=== PATIENT | male | born 1985 | race African-American/Black ===

== ENCOUNTER 2021-05-10 16:37 | Emergency (ER) | payer MEDICAID, SELFPAY ==
--- NOTE | ~2021-05-10 | XR_ITS ---
EXAMINATION: XR FOOT, RIGHT CLINICAL INFORMATION: Foreign body at ball of foot COMPARISON: None TECHNIQUE: AP, lateral, and oblique views of the right foot. FINDINGS: The bones and soft tissues are normal aside from some mild soft tissue swelling on the plantar surface. No fracture. Alignment is anatomic. Joint spaces are maintained. No radiopaque foreign body seen. XR/XR foot RT min 3V IMPRESSION: No acute abnormality seen. No radiopaque foreign body identified.
[2021-05-10 16:45] VITALS: BP 148/73; PULSE 87; RESP 16; TEMP 36.8; O2SAT 98; BMI 26.9
--- NOTE | 2021-05-10 17:21 | ED.EXTPRO ---
HPI - Extremity Problem General Chief complaint: Extremity Problem Stated complaint: hurt his foot Time Seen by Provider: 05/10/21 16:50 Source: patient Mode of arrival: ambulatory Limitations: no limitations History of Present Illness HPI Narrative: 35 y/o male presenting with right foot pain for the last 2-3 weeks after he had a wooden sliver in his foot. He reports removing the wood immediately and he thought he got it out completely intact. He does not know if it was pressure treated or not. He is not up to date on his tetanus shot. He reports ongoing pain in his right foot and he is concerned there may be additional sliver or wood piece still in his foot. He denies redness or drainage of pus, no muscle cramping or pain. He states there is hard skin over the area where the wood was and it is very tender to touch and hurts to walk on. MD Complaint: extremity pain Onset (ago): week(s) (2) Pain Consistency: constant Location: right and lower extremity Severity scale (1-10): 7 Quality: aching Radiation: none Relieving factors: rest Exacerbating factors: weight bearing and palpation Associated symptoms: denies other symptoms Related Data Previous Rx's Medication Instructions Recorded cephalexin 500 mg PO Q6H 5 Days #20 cap 05/10/21 ibuprofen 600 mg PO Q8H PRN #10 tab 05/10/21 Allergies Allergy/AdvReac Type Severity Reaction Status Date / Time Unable to Assess Allergy Unverified 05/10/21 16:57 Review of Systems Review of Systems: Constitutional: No Fever, No Chills Cardiovascular: No Chest Pain, No SOB Respiratory: No Cough, No Sputum Gastrointestinal: No Nausea, No Vomiting Musculoskeletal: No joint pain, No Myalgias Skin: + Skin Lesions, No rash Neuro: No Weakness, No Numbness Heme/Lymph: No Bruising, No Lymphadenopathy PMFSH Past Medical History Attestation statement: The following information was validated with the patient. Medical History ADHD High cholesterol Social History Social History Advance Directives: No Advance Directives Information Provided: No Physical Exam Vital Signs: Vital Signs: Last Vital Signs Temp 98.2 F 05/10/21 16:45 Pulse 87 05/10/21 16:45 Resp 16 05/10/21 16:45 BP 148/73 H 05/10/21 16:45 Pulse Ox 98 05/10/21 16:45 Body Mass Index 26.9 Appearance: Alert. Oriented X3. No acute distress. HEENT: normal inspection CVS: Normal heart rate and rhythm. Pulses normal. Respiratory: No respiratory distress. Skin: Skin warm and dry. Normal skin color. Normal skin turgor. No rashes. Extremities: plantar aspect of right foot with calloused area located on distal/lateral aspect without swelling, erythema or drainge. +tenderness. no palpable FB. NV intact distally. Neuro: Oriented X 3. No motor deficit. No sensory deficit. Ambulates with a limp. Course Course Course Narrative: 35 yo male presenting with plantar foot pain s/p puncture wound almost 3 weeks ago. XR pending to assess for residual FB. Reevaluation(s) Reevaluation #1: XR shows No acute abnormality seen. No radiopaque foreign body identified. Will treat for possible infection although no significant erythema or warmth. Will also refer to Podiatry for further management. Patient agress with plan and is stable for discharge home. Discharge Plan Discharge Clinical Impression: Foot pain Qualifiers: Laterality: right Qualified Code(s): M79.671 - Pain in right foot Patient Disposition: Home, Self-Care Instructions: Puncture Wound in the Foot (ED) Additional Instructions: Your x-ray today did not show any residual material in the foot. Start taking the prescribed antibiotic as directed. Recommend trial of over the counter Compound W for plantar wart. Recommend following up with Podiatry for further management. Prescriptions: New cephalexin 500 mg capsule 500 mg PO Q6H 5 Days Qty: 20 RF: 0 ibuprofen 600 mg tablet 600 mg PO Q8H PRN (Reason: pain) Qty: 10 RF: 0 Referrals: Mert Siddiqui MD [Physician] - 3 days Stand Alone Forms: Work/School Release
[2021-05-10] MEDS: Diphth,Pertus(ACell),Tet Adult 0.5 ML SYRINGE IM (17:36)
== END 2021-05-10 18:18 | disposition home or self-care (01) ==
PROVIDERS: Emergency Provider Emergency Medicine
DX: S91.331A Puncture wound without foreign body, right foot, initial encounter (principal); S90.821A Blister (nonthermal), right foot, initial encounter; M79.671 Pain in right foot; Y28.9XXA Contact with unspecified sharp object, undetermined intent, initial encounter; Y93.9 Activity, unspecified; Y92.9 Unspecified place or not applicable; Y99.9 Unspecified external cause status; Z79.899 Other long term (current) drug therapy
CPT/HCPCS: 73630; 90471; 90715; 99283; 99284

== ENCOUNTER 2021-11-09 20:09 | Emergency (ER) | payer MEDICAID, SELFPAY ==
[2021-11-09 20:19] VITALS: BP 140/74; PULSE 89; RESP 18; TEMP 36.8; O2SAT 95; BMI 30.8
[2021-11-09 20:58] LABS: Amphetamine Screen Urine Not Detected (Not Detect); Barbiturates, Urine Not Detected (Not Detect); Benzodiazepines Screen Urine Not Detected (Not Detect); Cannabinoid Screen Urine POSITIVE (Not Detect); Cocaine Screen Urine Not Detected (Not Detect); Fentanyl, urine Not Detected (Not Detect); Opiate Screen Urine Not Detected (Not Detect); Phencyclidine Screen Urine Not Detected (Not Detect)
[2021-11-09 21:00] LABS: COVID-19 Test Negative (Negative)
--- NOTE | 2021-11-09 21:05 | ED_ITS ---
HPI - Psych General Chief Complaint: Psychiatric Symptoms <Daniel Mason MD - Last Filed: 11/09/21 22:02> Stated Complaint: SI <Daniel Mason MD - Last Filed: 11/09/21 22:02> Time Seen by Provider: 11/09/21 21:05 <Daniel Mason MD - Last Filed: 11/09/21 22:02> Source: patient and EMS <Daniel Mason MD - Last Filed: 11/09/21 22:02> Mode of arrival: EMS <Daniel Mason MD - Last Filed: 11/09/21 22:02> Limitations: no limitations <Daniel Mason MD - Last Filed: 11/09/21 22:02> History of Present Illness HPI Narrative: 35-year-old male came in for evaluation of depression and suicidal attempt. Patient brought in by ambulance for severe depression, patient attempted to commit suicide by hanging himself in the role but he could not do it, family called the police, the patient ran away in the wood the patient got caught by the police dog . Patient been depressed for the past 6 years, going through divorce with his , also cannot see his children or talk to them, patient also mention financial problem and job problem felt very depressed today and planned to hang himself using a rope and belt, but could hang himself and called the police that the patient ran. <Daniel Mason MD - Last Filed: 11/09/21 22:02> Related Data Home Medications: Previous Rx's Medication Instructions Recorded cephalexin 500 mg capsule 500 mg PO Q6H 5 Days #20 cap 05/10/21 ibuprofen 600 mg tablet 600 mg PO Q8H PRN #10 tab 05/10/21 <Daniel Mason MD - Last Filed: 11/09/21 22:02> Allergies/Adverse Reactions: Allergies Allergy/AdvReac Type Severity Reaction Status Date / Time Unable to Assess Allergy Unverified 05/10/21 16:57 <Daniel Mason MD - Last Filed: 11/09/21 22:02> Review of Systems Review of Systems: all other systems are reviewed and are negative Constitutional: Reports as per HPI and Reports no additional constitutional complaints Eyes: Reports as per HPI and Reports no additional eye complaints Reports system reviewed and no additional complaints, except as documented Cardiovascular: Reports as per HPI and Reports no additional cardiovascular complaints Respiratory: Reports as per HPI and Reports no additional respiratory complaints Gastrointestinal: Reports as per HPI and Reports no additional gastrointestinal complaints Genitourinary: Reports no additional female genitourinary complaints Musculoskeletal: Reports no additional musculoskeletal complaints Skin/Breast: Reports system reviewed and no additional complaints, except as docu Psychiatric: Reports no additional psychiatric complaints Endocrine: Reports no additional endocrine complaints Hematologic/Lymphatic: Reports no additional hematologic/lymphatic complaints Allergic/Immunologic: Reports no additional allergic/immunologic complaints Reports system reviewed and no additional complaints, except as documented and Reports Abnormal speech present <Daniel Mason MD - Last Filed: 11/09/21 22:02> [facility] Past Medical History Medical History: Medical History ADHD High cholesterol <Daniel Mason MD - Last Filed: 11/09/21 22:02> Social History Social History: Social History Advance Directives: No <Daniel Mason MD - Last Filed: 11/09/21 22:02> Physical Exam Vital Signs: Vital Signs: Last Vital Signs Temp 98.3 F 11/10/21 00:26 Pulse 72 11/10/21 00:26 Resp 18 11/10/21 00:26 BP 128/59 L 11/10/21 00:26 Pulse Ox 99 11/10/21 00:26 BMI result Body Mass Index 30.8 vital signs have been reviewed as appeared to be correct. Blood pressure normal. Heart rate normal. Respiration rate normal. Temperature normal. Oxygen saturation normal. <Daniel Mason MD - Last Filed: 11/09/21 22:02> Vital Signs: Last Vital Signs Temp 98.3 F 11/10/21 00:26 Pulse 72 11/10/21 00:26 Resp 18 11/10/21 00:26 BP 128/59 L 11/10/21 00:26 Pulse Ox 99 11/10/21 00:26 BMI result Body Mass Index 30.8 <TOMER Alvarado - Last Filed: 11/10/21 10:52> Appearance: Alert. Oriented X3. No acute distress. Head: Normal external exam. Normocephalic. Atraumatic. No Jeter signs noted. No raccoon eyes noted Eyes: PERRLA. EOMI. Conjunctiva and sclera normal. Eyelids normal. ENT: TM's Normal. Pharynx normal. Uvula midline. Moist mucous membranes. No trismus noted. No drooling noted. No muffled voice noted. Neck: Normal inspection. Neck supple. FROM. No adenopathy. Thyroid Normal. No meningeal signs. No neck mass noted. CVS: Normal heart rate and rhythm. Heart sound normal. No murmurs noted. Pulses normal throughout. Respiratory: No respiratory distress. Painless inspiration. Breath sounds normal. No wheezes/rales/rhonchi noted. Chest nontender. No accessory muscle usage noted or decreased air movement noted. Abdomen: Soft and nontender. Bowel sounds normal in all 4 quadrants. No distention noted. No organomegaly noted. No visible injury noted. Back: No CVA tenderness. Full range of motion noted. Skin: Skin warm and dry. Normal skin color. Normal skin turgor. No rashes/lesions/lacerations noted. Extremities: No lower extremity edema. Extremities exhibit normal range of motion. Extremities nontender. Neuro: Oriented X 3. Cranial nerve exam: II-XII are grossly intact No motor deficit. No sensory deficit. normal reflexes. Patient Appearance: Appropriate Patient Orientation: Person, Place, Time and Situation Level of Consciousness: Awake, Appropriate and Alert Patient Behavior: Talkative, Cooperative. Mood Description: Depressed with suicidal ideation. Affect Description: Flat. Patient Cognition Impaired: No Ability to Follow Directions: Good Speech Pattern: Spontaneous Speech Memory Description: Intact Hallucinations: Not present. Delusions: Not Present Thought Process: Logical. Thought Content: Unremarkable Depressive Symptoms: Increased anxiety. Judgement: Poor <Daniel Mason MD - Last Filed: 11/09/21 22:02> Course Course Course Narrative: Assessment and plan. 35-year-old male came in after attempt to hang himself, patient was brought in by the police. Patient is depressed due to multiple reasons including going through divorce, cannot see his family, financial problem, or job problem. Patient is medically cleared await for [facility] and to evaluate him. <Daniel Mason MD - Last Filed: 11/09/21 22:02> Reevaluation(s) Reevaluation #1: Physician observation started at 22:00 . Patient placed in physician observation because the patient needed more time for BHN evaluation and the need for placement patient's vital sign were stable, patient is alert and oriented , neuro exam unchanged, unremarkable rest of physical exam. <Daniel Mason MD - Last Filed: 11/09/21 22:02> Time: 22:01 <Daniel Mason MD - Last Filed: 11/09/21 22:02> Reevaluation #2: Patient is a Section 12, awaiting be H and to evaluate. Patient presented for suicide attempt by hanging. Physician observation continues, no apparent distress. Lungs clear to auscultation bilaterally, heart regular rate rhythm, abdomen soft nontender. Vital signs are stable. Patient would like to go home today and would like to go back to work today. Patient is frustrated he has not seen Behavioral Health yet <TOMER Alvarado - Last Filed: 11/10/21 10:52> Time: 10:50 <TOMER Alvarado - Last Filed: 11/10/21 10:52> MDM - Psych Medical Records Attestation: I reviewed the patient's medical records. <Daniel Mason MD - Last Filed: 11/09/21 22:02> Lab Data Attestation: I reviewed the patient's lab results. <Daniel Mason MD - Last Filed: 11/09/21 22:02> Result diagrams: : 11/09/21 21:12 11/09/21 21:12 <Daniel Mason MD - Last Filed: 11/09/21 22:02> Labs: Lab Results 11/09/21 11/09/21 11/09/21 Range/Units 20:38 20:39 21:12 WBC 6.2 (4.8-10.8) X10*3/uL RBC 4.67 (4.60-5.80) X10*6/uL Hgb 14.0 (14.0-18.0) g/dl Hct 40.7 L (42.0-52.0) % MCV 87.2 (80.0-98.0) fL MCH 30.0 (27.0-33.0) pg MCHC 34.4 (31.0-36.0) g/dl RDW 12.8 (11.0-16.0) % Plt Count 289 (160-400) X10*3/uL MPV 9.1 L (9.4-12.4) fL Immature Gran % (Auto) 0.2 (0.0-0.4) % Neut % (Auto) 52.2 (45-73) % Lymph % (Auto) 37.2 (20-40) % [place] % (Auto) 6.1 (2-11) % Eos % (Auto) 4.0 (0-4) % Baso % (Auto) 0.3 (0-2) % Lymph # (Auto) 2.3 (1.2-4.9) X10*3/uL [place] # (Auto) 0.4 (0.1-1.2) X10*3/uL Eos # (Auto) 0.3 (0.0-0.4) X10*3/uL Baso # (Auto) 0.0 (0.0-0.2) X10*3/uL Abs Immat Gran (auto) 0.01 (0.00-0.03) X10*3/uL Absolute Neuts (auto) 3.2 (2.0-8.3) x10*3/uL Absolute Nucleated RBC 0.000 (0.0-0.012) X10*3/uL Nucleated RBC % (auto) 0.0 (0.0-0.2) /100WBC Sodium (135-145) mmol/L Potassium (3.3-5.1) mmol/L Chloride (96-108) mmol/L Carbon Dioxide (22-29) mmol/L Anion Gap (12-20) BUN (9-16) mg/dL Creatinine (0.5-1.4) mg/dL Estim Creat Clear Calc Estimated GFR Random Glucose (60-115) mg/dL Calcium (8.4-10.2) mg/dL Urine Opiates Screen Not Detected (Not Detect) Urine Fentanyl Screen Not Detected (Not Detect) Ur Barbiturates Screen Not Detected (Not Detect) Ur Phencyclidine Scrn Not Detected (Not Detect) Ur Amphetamines Screen Not Detected (Not Detect) U Benzodiazepines Scrn Not Detected (Not Detect) Urine Cocaine Screen Not Detected (Not Detect) U Marijuana (THC) Screen POSITIVE H (Not Detect) Ethyl Alcohol mg/dL COVID-19 (JULIANNA) Negative (Negative) COVID-19 Clin Com See Note 11/09/21 11/09/21 Range/Units 21:12 21:12 WBC (4.8-10.8) X10*3/uL RBC (4.60-5.80) X10*6/uL Hgb (14.0-18.0) g/dl Hct (42.0-52.0) % MCV (80.0-98.0) fL MCH (27.0-33.0) pg MCHC (31.0-36.0) g/dl RDW (11.0-16.0) % Plt Count (160-400) X10*3/uL MPV (9.4-12.4) fL Immature Gran % (Auto) (0.0-0.4) % Neut % (Auto) (45-73) % Lymph % (Auto) (20-40) % [place] % (Auto) (2-11) % Eos % (Auto) (0-4) % Baso % (Auto) (0-2) % Lymph # (Auto) (1.2-4.9) X10*3/uL [place] # (Auto) (0.1-1.2) X10*3/uL Eos # (Auto) (0.0-0.4) X10*3/uL Baso # (Auto) (0.0-0.2) X10*3/uL Abs Immat Gran (auto) (0.00-0.03) X10*3/uL Absolute Neuts (auto) (2.0-8.3) x10*3/uL Absolute Nucleated RBC (0.0-0.012) X10*3/uL Nucleated RBC % (auto) (0.0-0.2) /100WBC Sodium 139 (135-145) mmol/L Potassium 3.9 (3.3-5.1) mmol/L Chloride 104 (96-108) mmol/L Carbon Dioxide 32 H (22-29) mmol/L Anion Gap 7 L (12-20) BUN 12 (9-16) mg/dL Creatinine 1.16 (0.5-1.4) mg/dL Estim Creat Clear Calc 116.7 Estimated GFR > 60 Random Glucose 131 H (60-115) mg/dL Calcium 9.1 (8.4-10.2) mg/dL Urine Opiates Screen (Not Detect) Urine Fentanyl Screen (Not Detect) Ur Barbiturates Screen (Not Detect) Ur Phencyclidine Scrn (Not Detect) Ur Amphetamines Screen (Not Detect) U Benzodiazepines Scrn (Not Detect) Urine Cocaine Screen (Not Detect) U Marijuana (THC) Screen (Not Detect) Ethyl Alcohol < 10 mg/dL COVID-19 (JULIANNA) (Negative) COVID-19 Clin Com <Daniel Mason MD - Last Filed: 11/09/21 22:02> Lab Results 11/09/21 11/09/21 11/09/21 Range/Units 20:38 20:39 21:12 WBC 6.2 (4.8-10.8) X10*3/uL RBC 4.67 (4.60-5.80) X10*6/uL Hgb 14.0 (14.0-18.0) g/dl Hct 40.7 L (42.0-52.0) % MCV 87.2 (80.0-98.0) fL MCH 30.0 (27.0-33.0) pg MCHC 34.4 (31.0-36.0) g/dl RDW 12.8 (11.0-16.0) % Plt Count 289 (160-400) X10*3/uL MPV 9.1 L (9.4-12.4) fL Immature Gran % (Auto) 0.2 (0.0-0.4) % Neut % (Auto) 52.2 (45-73) % Lymph % (Auto) 37.2 (20-40) % [place] % (Auto) 6.1 (2-11) % Eos % (Auto) 4.0 (0-4) % Baso % (Auto) 0.3 (0-2) % Lymph # (Auto) 2.3 (1.2-4.9) X10*3/uL [place] # (Auto) 0.4 (0.1-1.2) X10*3/uL Eos # (Auto) 0.3 (0.0-0.4) X10*3/uL Baso # (Auto) 0.0 (0.0-0.2) X10*3/uL Abs Immat Gran (auto) 0.01 (0.00-0.03) X10*3/uL Absolute Neuts (auto) 3.2 (2.0-8.3) x10*3/uL Absolute Nucleated RBC 0.000 (0.0-0.012) X10*3/uL Nucleated RBC % (auto) 0.0 (0.0-0.2) /100WBC Sodium (135-145) mmol/L Potassium (3.3-5.1) mmol/L Chloride (96-108) mmol/L Carbon Dioxide (22-29) mmol/L Anion Gap (12-20) BUN (9-16) mg/dL Creatinine (0.5-1.4) mg/dL Estim Creat Clear Calc Estimated GFR Random Glucose (60-115) mg/dL Calcium (8.4-10.2) mg/dL Urine Opiates Screen Not Detected (Not Detect) Urine Fentanyl Screen Not Detected (Not Detect) Ur Barbiturates Screen Not Detected (Not Detect) Ur Phencyclidine Scrn Not Detected (Not Detect) Ur Amphetamines Screen Not Detected (Not Detect) U Benzodiazepines Scrn Not Detected (Not Detect) Urine Cocaine Screen Not Detected (Not Detect) U Marijuana (THC) Screen POSITIVE H (Not Detect) Ethyl Alcohol mg/dL COVID-19 (JULIANNA) Negative (Negative) COVID-19 Clin Com See Note 11/09/21 11/09/21 Range/Units 21:12 21:12 WBC (4.8-10.8) X10*3/uL RBC (4.60-5.80) X10*6/uL Hgb (14.0-18.0) g/dl Hct (42.0-52.0) % MCV (80.0-98.0) fL MCH (27.0-33.0) pg MCHC (31.0-36.0) g/dl RDW (11.0-16.0) % Plt Count (160-400) X10*3/uL MPV (9.4-12.4) fL Immature Gran % (Auto) (0.0-0.4) % Neut % (Auto) (45-73) % Lymph % (Auto) (20-40) % [place] % (Auto) (2-11) % Eos % (Auto) (0-4) % Baso % (Auto) (0-2) % Lymph # (Auto) (1.2-4.9) X10*3/uL [place] # (Auto) (0.1-1.2) X10*3/uL Eos # (Auto) (0.0-0.4) X10*3/uL Baso # (Auto) (0.0-0.2) X10*3/uL Abs Immat Gran (auto) (0.00-0.03) X10*3/uL Absolute Neuts (auto) (2.0-8.3) x10*3/uL Absolute Nucleated RBC (0.0-0.012) X10*3/uL Nucleated RBC % (auto) (0.0-0.2) /100WBC Sodium 139 (135-145) mmol/L Potassium 3.9 (3.3-5.1) mmol/L Chloride 104 (96-108) mmol/L Carbon Dioxide 32 H (22-29) mmol/L Anion Gap 7 L (12-20) BUN 12 (9-16) mg/dL Creatinine 1.16 (0.5-1.4) mg/dL Estim Creat Clear Calc 116.7 Estimated GFR > 60 Random Glucose 131 H (60-115) mg/dL Calcium 9.1 (8.4-10.2) mg/dL Urine Opiates Screen (Not Detect) Urine Fentanyl Screen (Not Detect) Ur Barbiturates Screen (Not Detect) Ur Phencyclidine Scrn (Not Detect) Ur Amphetamines Screen (Not Detect) U Benzodiazepines Scrn (Not Detect) Urine Cocaine Screen (Not Detect) U Marijuana (THC) Screen (Not Detect) Ethyl Alcohol < 10 mg/dL COVID-19 (JULIANNA) (Negative) COVID-19 Clin Com <TOMER Alvarado - Last Filed: 11/10/21 10:52> Discharge Plan Discharge Clinical Impression: Depression, Suicidal ideation <Daniel Mason MD - Last Filed: 11/09/21 22:02> Prescriptions: No Action cephalexin 500 mg capsule 500 mg PO Q6H 5 Days Qty: 20 RF: 0 ibuprofen 600 mg tablet 600 mg PO Q8H PRN (Reason: pain) Qty: 10 RF: 0 <Daniel Mason MD - Last Filed: 11/09/21 22:02>
[2021-11-09 21:17] LABS: MANUAL DIFF FLAG NO
[2021-11-09 21:23] LABS: Basophils Percent Auto 0.3 % (0-2); Eosinophils Absolute Auto 0.3 X10*3/uL (0.0-0.4); Hematocrit 40.7 % (42.0-52.0); Imm Gran Abs Auto 0.01 X10*3/uL (0.00-0.03); Imm Gran Pct Auto 0.2 % (0.0-0.4); Lymphocytes Absolute Auto 2.3 X10*3/uL (1.2-4.9); Lymphocytes Percent Auto 37.2 % (20-40); Mean Corpuscular HGB Conc 34.4 g/dl (31.0-36.0); Mean Corpuscular Volume 87.2 fL (80.0-98.0); Mean Platelet Volume 9.1 fL (9.4-12.4); Monocytes Absolute Auto 0.4 X10*3/uL (0.1-1.2); Monocytes Percent Auto 6.1 % (2-11); Neutrophils Absolute Auto 3.2 x10*3/uL (2.0-8.3); Neutrophils Percent Auto 52.2 % (45-73); Platelet Count 289 X10*3/uL (160-400); Red Blood Count 4.67 X10*6/uL (4.60-5.80); Red Cell Distribution Width 12.8 % (11.0-16.0); White Blood Count 6.2 X10*3/uL (4.8-10.8)
[2021-11-09 21:36] LABS: Ethanol < 10 mg/dL
[2021-11-09 21:38] LABS: Anion Gap 7 (12-20); Blood Urea Nitrogen 12 mg/dL (9-16); Calcium 9.1 mg/dL (8.4-10.2); Carbon Dioxide 32 mmol/L (22-29); Chloride 104 mmol/L (96-108); Creatinine Clr Calc Pharmacy 116.7; Estimated Glomerular Filt Rate > 60; Glucose Random 131 mg/dL (60-115); Potassium 3.9 mmol/L (3.3-5.1); Sodium 139 mmol/L (135-145)
[2021-11-10 00:26] VITALS: BP 128/59; PULSE 72; RESP 18; TEMP 36.8; O2SAT 99
--- NOTE | 2021-11-10 06:13 | PC.NURSE ---
Patient slept through the night, no distress observed/reported, patient behavior is appropriate and cooperative, mood depressed, coherent, currently not on any medication, called but patient doesn't want to talk, BHN referral completed/confirmed, pending evaluation in the morning, VSS, will continue to monitor.
--- NOTE | 2021-11-10 07:21 | PC.NURSE ---
patient appears to remain asleep at present, respirations are even and unlabored, patient appears in no distress
--- NOTE | 2021-11-10 09:27 | PC.NURSE ---
with patient consent t/w called who said we're on a split, it was scary, he wrote a note and informed clients w that he was up and would remain here presently awaiting disposition and plan
--- NOTE | 2021-11-10 12:00 | PC.NURSE ---
since patient appeared upset t/w pursued an order for med to help him feel calmer, approached patient, patient declined
--- NOTE | 2021-11-10 12:48 | PC.NURSE ---
patient observed on phone w mom she's ruined my life () seems to minimize own involvement in prev noc's activities. talked to mom about trying to get car back from . walked by t/w never getting again while on phone some profane language used.
[2021-11-10] MEDS: Nicotine 7 MG PATCH.TD24 TRANSDERMA (17:26)
[2021-11-10 20:15] VITALS: BP 144/73; PULSE 86; TEMP 36.8; O2SAT 97
[2021-11-11 05:04] VITALS: BP 161/69; PULSE 82; RESP 18; TEMP 37.1; O2SAT 100
--- NOTE | 2021-11-11 06:22 | PC.NURSE ---
Patient slept through the night, no distress observed/reported, patient behavior is appropriate and cooperative, mood depressed, coherent, currently not on any medication, BHN assessment completed, disposition section 12 inpatient bed search, VSS, will continue to monitor.
--- NOTE | 2021-11-11 07:20 | PC.NURSE ---
patient appears to remain asleep at present, respirations are even and unlabored, patient appears in no distress
[2021-11-11] MEDS: Nicotine 7 MG PATCH.TD24 TRANSDERMA (11:38)
[2021-11-11 16:15] VITALS: BP 118/78; PULSE 81; RESP 20; TEMP 36.5; O2SAT 98
[2021-11-12 05:40] VITALS: BP 137/87; PULSE 76; RESP 20; TEMP 36.6; O2SAT 99
--- NOTE | 2021-11-12 06:00 | PC.NURSE ---
Patient slept through the night, no distress observed/reported, patient behavior is appropriate and cooperative, coherent, currently not on any medication, BHN assessment completed, disposition section 12 inpatient bed search, VSS, will continue to monitor.
[2021-11-12 09:17] VITALS: BP 141/80; PULSE 77; RESP 16; TEMP 36.9; O2SAT 97
[2021-11-12] MEDS: Nicotine 7 MG PATCH.TD24 TRANSDERMA (12:00)
== END 2021-11-12 16:10 | disposition home or self-care (01) ==
PROVIDERS: Emergency Provider Emergency Medicine
DX: F32.A Depression, unspecified (principal); R45.851 Suicidal ideations; Z20.822 Contact with and (suspected) exposure to COVID-19; F12.90 Cannabis use, unspecified, uncomplicated; Z72.89 Other problems related to lifestyle; Z63.0 Problems in relationship with spouse or partner; Z56.9 Unspecified problems related to employment; Z59.9 Problem related to housing and economic circumstances, unspecified
CPT/HCPCS: 36415; 80048; 80307; 82077; 85025; 87635; 99284; 99285